=== PATIENT | male | born 1950 | race Hispanic/Latino ===

== ENCOUNTER 2018-04-01 05:35 | Day surgery (SDC) | payer OTHER ==
[~2018-04-01 05:35] MED LIST: ALFU10TA18 PO; APIX5TAB PO; ASPI-1197 PO; METO25TA6 PO; PRAV40TA3 PO; RIVA20TA PO; UBID1CAP56 PO
[2018-04-01] MEDS ORDERED: SODIUM CHLORIDE 0.9% 1000ML 1,000 ML IV ONE (05:37)
[2018-04-01] MEDS ORDERED: PROPOFOL 10 MG/ML 20ML VIAL IV ONE (07:02)
[2018-04-01] MEDS ORDERED: FENTANYL CITRATE PF 50 MCG/1 ML 2ML VIAL ONE (07:02)
[2018-04-01] MEDS ORDERED: LIDOCAINE HCL-MPF 2% 5ML VIAL ONE (07:02)
[2018-04-01] MEDS ORDERED: GLYCOPYRROLATE 0.2 MG/ML 5 ML VIAL ONE (07:02)
[2018-04-01 07:19] VITALS: BP 98/63
[2018-04-01 07:24] VITALS: BP 112/68
[2018-04-01 07:32] VITALS: BP 117/75
[2018-04-01 07:37] VITALS: BP_SYST 126; BP_DIAS 72; BP_DIAS 77
== END 2018-04-01 07:45 | disposition home or self-care (01) ==
LOC: DAH 05:35 → ENDO 05:35
PROVIDERS: ATTEND Internal Medicine Gastroenterology
DX: Z12.11 Encounter for screening for malignant neoplasm of colon (principal); D12.3 Benign neoplasm of transverse colon; Z86.010 Personal history of colon polyps; K64.0 First degree hemorrhoids; I48.2 Chronic atrial fibrillation; Z68.31 Body mass index [BMI] 31.0-31.9, adult; E78.00 Pure hypercholesterolemia, unspecified; Z79.899 Other long term (current) drug therapy; E66.9 Obesity, unspecified; I10 Essential (primary) hypertension; R00.1 Bradycardia, unspecified
CPT/HCPCS: 45385; 88305; 93005; A4606; J2704; J3010; J3490 ×2; J7030

== ENCOUNTER 2019-05-26 06:12 | Day surgery (SDC) | payer OTHER ==
[~2019-05-26] VITALS: Ht 172.7 cm; Wt 94.3 kg
[~2019-05-26 06:12] MED LIST changes: -ALFU10TA18 PO; +ALFU10TA9 PO; -APIX5TAB PO; -METO25TA6 PO
[2019-05-26] MEDS ORDERED: SODIUM CHLORIDE 0.9% 1000ML 1,000 ML IV ONE (06:27)
[2019-05-26 07:58] VITALS: BP 130/74
[2019-05-26] MEDS ORDERED: PROPOFOL 10 MG/ML 20ML VIAL IV ONE (08:24)
[2019-05-26 08:38] VITALS: BP 138/85
[2019-05-26 08:41] VITALS: BP 128/85
[2019-05-26 08:46] VITALS: BP 123/82
[2019-05-26 08:50] VITALS: BP 128/76
[2019-05-26 09:02] VITALS: BP 128/74
== END 2019-05-26 09:10 | disposition home or self-care (01) ==
LOC: DAH 06:12 → ENDO 06:12
PROVIDERS: ATTEND Internal Medicine Gastroenterology
DX: K21.9 Gastro-esophageal reflux disease without esophagitis (principal); K29.50 Unspecified chronic gastritis without bleeding; E78.00 Pure hypercholesterolemia, unspecified; I48.91 Unspecified atrial fibrillation; Z86.010 Personal history of colon polyps; Z79.899 Other long term (current) drug therapy
CPT/HCPCS: 43239; 88305; A4215; A4221; A4222; A4223; A4606; A4620; A4663; J2704; J7030

== ENCOUNTER → 2021-01-05 | Outpatient (CLI) | payer OTHER ==
[~2021-01-05] MED LIST changes: -ASPI-1197 PO; +LOVA10TA2 PO; +METO25 PO; +NITR0.4T50 SL; -PRAV40TA3 PO
== END | disposition home or self-care (01) ==
LOC: RAH 08:59
PROVIDERS: ATTEND Family Medicine
DX: K80.20 Calculus of gallbladder without cholecystitis without obstruction (principal); N28.1 Cyst of kidney, acquired
CPT/HCPCS: 76700

== ENCOUNTER 2021-03-09 19:08 | Emergency (ER) | payer OTHER ==
[~2021-03-09] VITALS: Ht 172.7 cm; Wt 88.5 kg
[2021-03-09 20:25] LABS: BASOPHILS % (AUTO) 0.4 % (0.0-5.0); EOSINOPHILS % (AUTO) 1.6 % (0.0-8.0); HEMATOCRIT 36.6 % (42-54); LYMPHOCYTES % (AUTO) 22.4 % (21.0-51.0); MEAN CORPUSCULAR HEMOGLOBIN 32.2 pg (27.0-33.0); MEAN CORPUSCULAR HGB CONC 34.7 g/dL (32.0-36.0); MEAN CORPUSCULAR VOLUME 92.7 fL (79-99); NEUTROPHILS % (AUTO) 66.2 % (40.0-77.0); PLATELET COUNT (AUTO) 203 K/uL (130-400); RED BLOOD CELL COUNT(AUTO) 3.95 MIL/uL (4.50-6.20); RED CELL DISTRIBUTION WIDTH 13.3 % (11.0-15.5); WHITE BLOOD COUNT (AUTO) 9.5 K/uL (4.8-10.8)
[2021-03-09] MEDS ORDERED: BISACODYL 10 MG SUPP.RECT RC ONE (20:30)
[2021-03-09 20:32] VITALS: BP 157/86
[2021-03-09 20:34] LABS: POTASSIUM 4.2 mmol/L (3.5-5.1)
[2021-03-09 20:37] LABS: INR 1.12 (0.85-1.15); PROTHROMBIN TIME 12.1 SEC (9.6-11.6)
[2021-03-09 20:38] LABS: PARTIAL THROMBOPLASTIN TIME 35.7 SEC (26.3-35.5)
[2021-03-09 20:38] LABS: APPEARANCE,URINE Clear (CLEAR); BILIRUBIN,URINE Negative (NEGATIVE); COLOR,URINE Yellow (YELLOW); GLUCOSE, URINE (UA) Negative (NEGATIVE); KETONES,URINE Negative (NEGATIVE); LEUKOCYTE ESTERASE ,URINE Negative (NEGATIVE); NITRATE,URINE Negative (NEGATIVE); OCCULT BLOOD,URINE Negative (NEGATIVE); PH,URINE 5.5 (5.0-8.0); PROTEIN,URINE Negative (NEGATIVE)
[2021-03-09 20:39] LABS: ALBUMIN 3.4 g/dL (3.5-5.0); BILIRUBIN,TOTAL 0.4 mg/dL (0.2-1.0); TOTAL PROTEIN, SERUM 6.8 g/dL (6.0-8.3)
[2021-03-09] MEDS ORDERED: HYDR30CR79 RC (21:00)
[2021-03-09] MEDS ORDERED: DOCU-116 PO (21:00)
== END 2021-03-09 21:16 | disposition home or self-care (01) ==
LOC: EDH 19:08
DX: K59.00 Constipation, unspecified (principal); K60.2 Anal fissure, unspecified; I48.91 Unspecified atrial fibrillation; Z79.899 Other long term (current) drug therapy; Z90.49 Acquired absence of other specified parts of digestive tract
CPT/HCPCS: 36415; 80053; 81003; 82270; 85025; 85610; 85730

== ENCOUNTER → 2021-10-18 | Outpatient (CLI) | payer OTHER ==
[~2021-10-18] MED LIST changes: +DOCU-116 PO; +HYDR30CR79 RC
[2021-10-18 12:39] LABS: POTASSIUM 4.4 mmol/L (3.5-5.1)
[2021-10-18 13:19] LABS: MAGNESIUM 1.8 mg/dL (1.80-2.40); THYROID STIMULATING HORMONE 2.09 uIU/mL (0.36-3.74)
== END | disposition home or self-care (01) ==
LOC: LAB 11:17
PROVIDERS: ATTEND Internal Medicine Cardiovascular Disease
DX: I48.0 Paroxysmal atrial fibrillation (principal)
CPT/HCPCS: 36415; 80048; 83735; 84443

== ENCOUNTER → 2021-11-07 | Outpatient (CLI) | payer OTHER | END | disposition home or self-care (01) | LOC: SHCH 12:26 | PROVIDERS: ATTEND Internal Medicine Cardiovascular Disease | DX: I48.0 Paroxysmal atrial fibrillation (principal); I51.7 Cardiomegaly; I35.1 Nonrheumatic aortic (valve) insufficiency | CPT/HCPCS: 93306 ==

== ENCOUNTER → 2022-06-17 | Outpatient (CLI) | payer OTHER ==
[~2022-06-17] MED LIST changes: +AMIO200T68 PO; +DABI150C PO; +IOHEXOL 350 MG/ML 100ML INFUS..BTL IV ONE; +ROSU5TAB12 PO
== END | disposition home or self-care (01) ==
LOC: CANSCHCLI → RAH 07:55
PROVIDERS: ATTEND Internal Medicine Cardiovascular Disease
DX: Z01.810 Encounter for preprocedural cardiovascular examination (principal); I48.0 Paroxysmal atrial fibrillation; I25.10 Atherosclerotic heart disease of native coronary artery without angina pectoris; I51.7 Cardiomegaly; K44.9 Diaphragmatic hernia without obstruction or gangrene; M47.815 Spondylosis without myelopathy or radiculopathy, thoracolumbar region; Z90.49 Acquired absence of other specified parts of digestive tract
CPT/HCPCS: 71275; Q9967

== ENCOUNTER 2022-06-20 05:57 | Observation (INO) | payer OTHER ==
[2022-06-14 11:47] LABS: BASOPHILS % (AUTO) 0.6 % (0.0-5.0); EOSINOPHILS % (AUTO) 7.5 % (0.0-8.0); HEMATOCRIT 37.9 % (42-54); LYMPHOCYTES % (AUTO) 41.9 % (21.0-51.0); MEAN CORPUSCULAR HEMOGLOBIN 30.7 pg (27.0-33.0); MEAN CORPUSCULAR VOLUME 93.1 fL (79-99); MONOCYTES % (AUTO) 12.4 % (3.0-13.0); NEUTROPHILS % (AUTO) 37.2 % (40.0-77.0); PLATELET COUNT (AUTO) 217 K/uL (130-400); RED BLOOD CELL COUNT(AUTO) 4.07 MIL/uL (4.50-6.20); WHITE BLOOD COUNT (AUTO) 4.7 K/uL (4.8-10.8)
[2022-06-14 11:55] LABS: CREATININE 1.1 mg/dL (0.5-1.5); POTASSIUM 4.2 mmol/L (3.5-5.1)
[2022-06-14 11:59] LABS: INR 1.31 (0.85-1.15); PROTHROMBIN TIME 14.1 SEC (9.6-11.6)
[2022-06-14 12:00] LABS: PARTIAL THROMBOPLASTIN TIME 59.8 SEC (26.3-35.5)
[2022-06-19 10:43] VITALS: BP 136/77
[2022-06-20] VITALS (25 sets, daily range): BP systolic 118–184; BP diastolic 61–116
[~2022-06-20] VITALS: Ht 172.7 cm; Wt 89.9 kg
[~2022-06-20 05:57] MED LIST changes: -ALFU10TA9 PO; -DOCU-116 PO; -HYDR30CR79 RC; -IOHEXOL 350 MG/ML 100ML INFUS..BTL IV ONE; -LOVA10TA2 PO; -METO25 PO; -RIVA20TA PO; -UBID1CAP56 PO
[2022-06-20] MEDS ORDERED: 0.9%NACL 1000ML 1,000 ML IV ONE (06:28)
[2022-06-20] MEDS ORDERED: HEPARIN 10,000 UNIT/10ML (1,000 UNIT/ML) VIAL ONE ×3 (07:21→09:37)
[2022-06-20] MEDS ORDERED: LIDOCAINE HCL 400MG/20ML VIAL ONE (07:21)
[2022-06-20] MEDS ORDERED: ISOPROTERENOL HCL 0.2 MG/ML AMP/VIAL/BAG ONE (07:21)
[2022-06-20] MEDS ORDERED: MIDAZOLAM HCL 1 MG/ML 2ML VIAL ONE (07:34)
[2022-06-20] MEDS ORDERED: FENTANYL CITRATE PF 50 MCG/1 ML 2ML VIAL ONE (07:37)
[2022-06-20] MEDS ORDERED: SUCCINYLCHOLINE 200MG/10ML SYR ONE (07:37)
[2022-06-20] MEDS ORDERED: PROPOFOL 10 MG/ML 20ML VIAL IV ONE (07:37)
[2022-06-20] MEDS ORDERED: ROCURONIUM 10MG/1ML SYR 10 MG/ML ML ONE (07:37)
[2022-06-20] MEDS ORDERED: NEOSTIGMINE 5MG/5ML SYR IV ONE (07:37)
[2022-06-20] MEDS ORDERED: GLYCOPYRROLATE 1 MG/5 ML SYRINGE ONE (07:37)
[2022-06-20] MEDS ORDERED: PHENYLEPHRINE HCL 10 MG/ML 1ML VIAL IV ONE (07:38)
[2022-06-20] MEDS ORDERED: EPHEDRINE SULFATE 50 MG/ML AMPULE ONE (07:38)
[2022-06-20] MEDS ORDERED: ROCURONIUM BROMIDE 10MG/1ML 5ML VL ONE (10:51)
[2022-06-20] MEDS ORDERED: PROTAMINE SULFATE 10 MG/ML 25ML VIAL IV ONE (12:21)
[2022-06-20] MEDS ORDERED: ACETAMINOPHEN WITH CODEINE 1 TAB TAB PO PRN (13:30)
[2022-06-20] MEDS ORDERED: NITROGLYCERIN 0.4 MG SL TAB SL SCH (13:30)
[2022-06-20] MEDS ORDERED: HYDRALAZINE 20MG/ML VIAL ONE (13:56)
[2022-06-20] MEDS ORDERED: PANTOPRAZOLE 40 MG TAB DR PO SCH (14:00)
[2022-06-20] MEDS: SUCRALFATE 1 GM TABLET PO SCH ×2 (15:33→21:10)
[2022-06-20] MEDS: ACETAMINOPHEN 325 MG TAB PO PRN (16:25)
[2022-06-20] MEDS ORDERED: ONDANSETRON 4MG INJ IVP PRN (16:35)
[2022-06-20] MEDS ORDERED: ONDANSETRON 4MG INJ ONE (16:45)
[2022-06-20] MEDS: DABIGATRAN 150MG CAPSULE PO SCH (21:11)
[2022-06-21 00:21] VITALS: BP 127/71
[2022-06-21] MEDS: SUCRALFATE 1 GM TABLET PO SCH ×2 (02:28→08:33)
[2022-06-21] MEDS: ACETAMINOPHEN 325 MG TAB PO PRN (02:31)
[2022-06-21 03:21] VITALS: BP 132/74
[2022-06-21 08:00] VITALS: BP 137/78
[2022-06-21] MEDS ORDERED: SUCR1ORA15 PO (08:30)
[2022-06-21] MEDS ORDERED: PANT40TA PO (08:30)
[2022-06-21] MEDS ORDERED: AMIODARONE 200 MG TABLET PO SCH (09:00)
[2022-06-21] MEDS ORDERED: PANTOPRAZOLE 40 MG TAB DR PO SCH (09:00)
[2022-06-21] MEDS: DABIGATRAN 150MG CAPSULE PO SCH (09:02)
[2022-06-21 11:30] VITALS: BP 145/78
== END 2022-06-21 12:33 | disposition home or self-care (01) ==
LOC: DAH 05:57 → DAHIP 05:58 → 2DH 15:26
PROVIDERS: ADMIT Internal Medicine Cardiovascular Disease; ATTEND Internal Medicine Cardiovascular Disease
DX: I48.0 Paroxysmal atrial fibrillation (principal); Z20.822 Contact with and (suspected) exposure to COVID-19; I10 Essential (primary) hypertension; E78.00 Pure hypercholesterolemia, unspecified; K59.00 Constipation, unspecified; M19.90 Unspecified osteoarthritis, unspecified site; R51.9 Headache, unspecified; R35.0 Frequency of micturition; Z85.46 Personal history of malignant neoplasm of prostate; Z79.899 Other long term (current) drug therapy; Z98.890 Other specified postprocedural states
CPT/HCPCS: 80048; 85025; 85610; 85730; 87426; 36415; 93005; 93622; 93623; 93656; A4344; C1894 ×3; C1893; A4215 ×2; C1731; A4649 ×2; C1732; C1730; G0378 ×22; J3010; J3490 ×5; J0330; J2710; J7030; J2720; J0360; J1644 ×4; J2250; J2704; J2405; J2370; A4223; A4222; A4221; A4663

== ENCOUNTER → 2023-10-06 | Outpatient (CLI) | payer OTHER ==
[~2023-10-06] MED LIST changes: -AMIO200T68 PO; +PANT40TA PO; +SUCR1ORA15 PO
== END | disposition home or self-care (01) ==
LOC: RAH 13:14
PROVIDERS: ATTEND Internal Medicine
DX: I70.201 Unspecified atherosclerosis of native arteries of extremities, right leg (principal); G62.9 Polyneuropathy, unspecified
CPT/HCPCS: 93925

== ENCOUNTER → 2023-11-22 | Outpatient (CLI) | payer OTHER ==
[~2023-11-22] MED LIST changes: -ROSU5TAB12 PO; +ROSU5TAB43 PO
== END | disposition home or self-care (01) ==
LOC: SHCH 12:43
PROVIDERS: ATTEND Internal Medicine Cardiovascular Disease
DX: I87.2 Venous insufficiency (chronic) (peripheral) (principal); I87.1 Compression of vein
CPT/HCPCS: 93970

== ENCOUNTER 2024-04-06 05:58 | Day surgery (SDC) | payer OTHER ==
[2024-04-02 08:45] VITALS: BP 159/79; PULSE 66; RESP 18; TEMP 97.4
[2024-04-02 08:56] LABS: BASOPHILS # (AUTO) 0.03 K/uL (0.00-0.20); BASOPHILS % (AUTO) 0.6 % (0.0-5.0); EOSINOPHILS # (AUTO) 0.16 K/uL (0.00-0.70); EOSINOPHILS % (AUTO) 3.3 % (0.0-8.0); HEMATOCRIT 36.2 % (42-54); IMMATURE GRANULOCYTE ABSOLUTE 0.05 K/uL (0-1); LYMPHOCYTES # (AUTO) 1.3 K/uL (1.0-4.8); LYMPHOCYTES % (AUTO) 26.4 % (21.0-51.0); MEAN CORPUSCULAR HEMOGLOBIN 32.9 pg (27.0-33.0); MEAN CORPUSCULAR HGB CONC 33.4 g/dL (32.0-36.0); MEAN CORPUSCULAR VOLUME 98.4 fL (79-99); MONOCYTES # (AUTO) 0.7 K/uL (0.1-1.0); MONOCYTES % (AUTO) 14.9 % (3.0-13.0); NEUTROPHILS # (AUTO) 2.6 K/uL (1.8-7.7); NEUTROPHILS % (AUTO) 53.8 % (40.0-77.0); PLATELET COUNT (AUTO) 236 K/uL (130-400); RED BLOOD CELL COUNT(AUTO) 3.68 MIL/uL (4.50-6.20); RED CELL DISTRIBUTION WIDTH 13.8 % (11.0-15.5); WHITE BLOOD COUNT (AUTO) 4.8 K/uL (4.8-10.8)
[2024-04-02 09:05] LABS: CREATININE 1.1 mg/dL (0.5-1.3); POTASSIUM 4.8 mmol/L (3.5-5.1)
[2024-04-02 09:07] LABS: INR 1.08 (0.85-1.15); PROTHROMBIN TIME 11.6 SEC (9.6-11.6)
[2024-04-02 09:08] LABS: PARTIAL THROMBOPLASTIN TIME 30.5 SEC (26.3-35.5)
[~2024-04-06] VITALS: Ht 172.7 cm; Wt 89.1 kg
[2024-04-06] VITALS (17 sets, daily range): BP systolic 139–167; BP diastolic 71–92; PULSE 58–78; RESP 12–17; TEMP 97.4–97.9
[~2024-04-06 05:58] MED LIST changes: +AMIO200T68 PO; +APIX5TAB PO; -DABI150C PO; +EZET10TA48 PO; +HYDR-3421 PO; +LOSA100T59 PO; -PANT40TA PO; -ROSU5TAB43 PO; -SUCR1ORA15 PO
[2024-04-06] MEDS ORDERED: LIDOCAINE HCL 400MG/20ML VIAL ONE ×2 (07:14→07:59)
[2024-04-06] MEDS ORDERED: ISOPROTERENOL HCL 0.2 MG/ML AMP/VIAL/BAG ONE (07:14)
[2024-04-06] MEDS ORDERED: HEParin 10,000 UNIT/10ML (1,000 UNIT/ML) VIAL ONE ×2 (07:15→08:39)
[2024-04-06] MEDS ORDERED: HEParin-NS 1,000 UNIT/500 ML 1,000 ML IV ONE (07:15)
[2024-04-06] MEDS ORDERED: IOHEXOL 350 MG/ML 100ML INFUS..BTL IV ONE (07:17)
[2024-04-06] MEDS ORDERED: proPOFol 1000 MG/100 ML 100 ML IV ONE (07:21)
[2024-04-06] MEDS ORDERED: LIDOCAINE HCL-MPF 1% 5ML AMP IJ ONE (07:21)
[2024-04-06] MEDS ORDERED: dexaMETHasone SOD PHOSPHATE 10MG/ML 1ML VIAL ONE (07:21)
[2024-04-06] MEDS ORDERED: ondanSETRON 4MG INJ ONE (07:21)
[2024-04-06] MEDS ORDERED: GLYCOPYRROLATE 0.2 MG/ML 5 ML VIAL ONE (07:22)
[2024-04-06] MEDS ORDERED: FENTanyl CITRate PF 50 MCG/1 ML 2ML VIAL ONE (07:22)
[2024-04-06] MEDS ORDERED: NEOSTIGMINE METHYLSULFATE 1MG/ML IV ONE (07:22)
[2024-04-06] MEDS ORDERED: rocuRONium bROMide 10MG/1ML 5ML VL ONE (07:22)
[2024-04-06] MEDS ORDERED: phenylEPHRINE HCL 10 MG/ML 1ML VIAL IV ONE (07:24)
[2024-04-06] MEDS ORDERED: ePHEDrine SULFate 50 MG/ML AMPULE ONE (07:24)
[2024-04-06] MEDS ORDERED: 0.9%NACL 10ML VIAL ONE (07:24)
[2024-04-06] MEDS: 0.9%NACL 1000ML 1,000 ML IV ONE (07:56)
[2024-04-06] MEDS ORDERED: HEParin-NS 1,000 UNIT/500 ML 500 ML IV ONE (08:05)
[2024-04-06] MEDS ORDERED: PROTamine SULFate 10 MG/ML 25ML VIAL IV ONE (10:38)
== END 2024-04-06 14:00 | disposition home or self-care (01) ==
LOC: DAH 05:58
PROVIDERS: ATTEND Internal Medicine Cardiovascular Disease
DX: I48.0 Paroxysmal atrial fibrillation (principal); I10 Essential (primary) hypertension; E78.5 Hyperlipidemia, unspecified; K21.9 Gastro-esophageal reflux disease without esophagitis; I25.10 Atherosclerotic heart disease of native coronary artery without angina pectoris; Z85.46 Personal history of malignant neoplasm of prostate; Z98.890 Other specified postprocedural states; Z79.01 Long term (current) use of anticoagulants; Z79.899 Other long term (current) drug therapy
CPT/HCPCS: 80048; 85025; 85610; 85730; 36415; 93005; 93656; 93657; 85347 ×6; 82948 ×2; C1894 ×2; C1732 ×3; C1730; A4649 ×2; C1760; C1766; J3010; J3490 ×6; J1100; J7030; J1644 ×4; J2704; J2405; J2710; J2371; Q9967; A4215; A4222; A4221; A4663; A4216; A4606; J2720; A4223 ×3

== ENCOUNTER 2024-05-21 06:42 | Emergency (ER) | payer OTHER ==
[~2024-05-21] VITALS: Ht 172.7 cm; Wt 89.8 kg
[~2024-05-21 06:42] MED LIST changes: -AMIO200T68 PO
[2024-05-21 07:00] VITALS: TEMP 98
--- NOTE | 2024-05-21 07:10 | NUR ---
REPORT RECEIVED FROM ERLINDA OJEDA
--- NOTE | 2024-05-21 07:12 | ERN ---
General Chief Complaint: Lower Extremity Pain/Injury Stated Complaint: RIGHT LEG PAIN Time Seen by MD: 07:08 History of Present Illness Initial Comments [id number] male who presents for atraumatic right leg pain. Patient reports one week of pain it is in the right lateral thigh and medial thigh and it goes behind of the right knee and into the calf. He describes it as a burning and painful sensation. He has been taking Tylenol with some relief but then the pain returns. It is positional. He reports that he initially he did have some bilateral leg swelling but this is improved. He denies any trauma or injury. He denies any lower back pain. He denies any paresthesias anesthesias or skin texture changes. Medical history: Atrial fibrillation, neuropathy PCP: [facility] [employer] Executive: Madeline Mcmanus Allergies: Coded Allergies: No Known Drug Allergies (Verified Allergy, Unknown, 10/07/14) Home Meds Reported Medications Losartan Potassium (Losartan Potassium) 100 Mg Tablet, 100 MG PO HS, TAB 04/02/24 Apixaban (Eliquis) 5 Mg Tablet, 5 MG PO BID, TAB 04/02/24 Ezetimibe (Ezetimibe) 10 Mg Tablet, 10 MG PO DAILY, TAB 04/02/24 Hydroxyzine HCl (Hydroxyzine HCl) 25 Mg Tablet, 25 MG PO DAILY PRN for ANXIETY, TAB 04/02/24 Nitroglycerin (Nitroglycerin) 0.4 Mg Tab.subl, 0.4 MG SL AD PRN for CHEST PAIN, TAB.SL 07/07/19 Past Medical History Past Medical History: A-Fib, Diabetes-Type II, High Cholesterol, Heart Disease, Hypertension Past Surgical History: Cholecystectomy Surgical History Other: CARDIAC STENT ROS Dictation CONSTITUTIONAL: No chills, no fever, no weakness, no diaphoresis, no malaise. HEAD/FACE: No signs of trauma. EENT: No eye pain, no blurred vision, no tearing, no double vision, no ear pain, no ear discharge, no nose pain, no nasal congestion, no throat pain, no throat swelling, no mouth pain. RESPIRATORY: No cough, no orthopnea, no SOB, no stridor, no wheezing. CARDIOVASCULAR: No chest pain, no edema, no palpitations, no syncope. GASTROINTESTINAL/ABDOMINAL: No abdominal pain, no constipation, no diarrhea, no nausea, no vomiting. GENITOURINARY: No abnormal discharge, no dysuria, no frequent urination, no hematuria. No complaints of pain in the genitals. MUSCULOSKELETAL: Right leg pain INTEGUMENTARY: No change in color, no change in hair/nails, no dryness, no lesion, no lumps, no rash. NEUROLOGICAL/PSYCH: No anxiety, not depressed, no emotional problem, no headache, no numbness, no pre-existing deficit, no history of seizures, no tremors, no weakness. HEMATOLOGIC/LYMPHATIC: Not anemic, no history of blood clots, no apparent bleeding, no bruising, glands not swollen. All Systems Negative, Except as Noted. Physical Exam Physical Exam Dictation VITAL SIGNS: Reviewed. GENERAL APPEARANCE: Alert, oriented x3, no acute distress. HEAD AND FACE: Non-traumatic. EYES: PERRL, pink conjunctivas, eyelid no trauma, anterior chamber clear. EARS: Pinnas intact and no signs of trauma or erythema. Ear canals clear and no discharge. TMs no erythema. NOSE: No discharge, no bleeding. OROPHARYNX: Mouth normal, teeth no caries, tongue pink. Pharynx clear, no erythema. Tonsils no exudates, no abscesses noted. Mucous membrane moist. NECK: Supple, non-tender, no thyromegaly, no masses, no JVD, no bruits. BREAST: Deferred. CHEST: No tenderness, no crepitus, no paradoxical movement, no retractions. LUNGS: Clear, well-ventilated, symmetric, no rales, no wheezing, no rhonchi, no stridor, good breath sounds bilaterally. HEART: Regular rate, regular rhythm, no murmur, no gallops. VASCULAR: No peripheral edema. ABDOMEN: Soft, positive bowel sounds, nondistended, no guarding, nontender, no rebound, no masses no hepatomegaly, no splenomegaly, no Villalobos's sign, no hernias. RECTAL: Deferred. GENITAL: Deferred. NEUROLOGICAL: Normal speech, gross motor function intact, gross sensory function intact. MUSCULOSKELETAL: Neck nontender, full range of motion, back nontender, full range of motion. EXTREMITIES: Nontender, full range of motion. SKIN: Color pink, dry, no turgor, no rash, no lacerations, no abrasions, no contusions. LYMPHATICS: Deferred. Results Laboratory and Microbiology Lab and Micro Result Laboratory Tests Test 12/13/24 08:00 White Blood Count 4.3 K/uL (4.8-10.8) L Red Blood Count 3.52 MIL/uL (4.50-6.20) L Hemoglobin 11.2 g/dL (14.0-18.0) L Hematocrit 33.6 % (42-54) L Mean Corpuscular Volume 95.5 fL (79-99) Mean Corpuscular Hemoglobin 31.8 pg (27.0-33.0) Mean Corpuscular Hemoglobin Concent 33.3 g/dL (32.0-36.0) Red Cell Distribution Width 13.2 % (11.0-15.5) Platelet Count 260 K/uL (130-400) Mean Platelet Volume 10.3 fL (7.5-10.5) Immature Granulocyte % (Auto) 0.7 % (0-1) Neutrophils (%) (Auto) 57.6 % (40.0-77.0) Lymphocytes (%) (Auto) 23.5 % (21.0-51.0) Monocytes (%) (Auto) 14.7 % (3.0-13.0) H Eosinophils (%) (Auto) 2.8 % (0.0-8.0) Basophils (%) (Auto) 0.7 % (0.0-5.0) Neutrophils # (Auto) 2.5 K/uL (1.8-7.7) Lymphocytes # (Auto) 1.0 K/uL (1.0-4.8) Monocytes # (Auto) 0.6 K/uL (0.1-1.0) Eosinophils # (Auto) 0.12 K/uL (0.00-0.70) Basophils # (Auto) 0.03 K/uL (0.00-0.20) Absolute Immature Granulocyte (auto 0.03 K/uL (0-1) Nucleated Red Blood Cells 0.0 % (0.0-0.19) Sodium Level 138 mmol/L (136-145) Potassium Level 4.0 mmol/L (3.5-5.1) Chloride Level 104 mmol/L (101-111) Carbon Dioxide Level 28 mmol/L (21-32) Blood Urea Nitrogen 16 mg/dL (7-18) Creatinine 1.0 mg/dL (0.5-1.3) Glomerular Filtration Rate Calc 78 mL/min (>90) Random Glucose 89 mg/dL (70-105) Total Calcium 7.9 mg/dL (8.5-10.1) L Total Creatine Kinase 48 U/L (21-232) # C-Reactive Protein, Quantitative 2.40 mg/L (0.5-3.0) MDM CC: Atraumatic right lower leg pain Historian: Patient Comorbidities: Atrial fibrillation, history of blood clots, neuropathy Limitations by social determinants of Health : None Differential diagnosis: DVT, musculoskeletal type pain, infection, other. Vital signs are stable Clinical exam is unremarkable Labs show no leukocytosis no anemia. Metabolic panel is normal. CRP and CK are normal. DVT study negative. Knee x-ray per my independent interpretation shows no acute abnormalities or osseous abnormalities. Pelvic XR per my independent interpretation shows No osseous abnormalities femoral x-ray per my independent interpretation shows no acute abnormalities. No signs of DVT, osseous abnormalities. Labs are all normal. Possibly musculoskeletal in nature. We will DC with a short course of NSAIDs and recommend PCP follow up. ED Course Orders Procedure Category Date Status Time Cbc With Differential LAB 05/21/24 In Process 07:08 Basic Metabolic Panel LAB 05/21/24 Complete 07:08 Crp Quantitative LAB 05/21/24 Complete 07:08 Erythrocyte LAB 05/21/24 In Process Sedimentation Rate 07:08 Creatine Kinase, Total LAB 05/21/24 Complete 07:08 Hip Unilat 2-3vw Right RAD 05/21/24 Taken 07:08 Femur 2vw Right RAD 05/21/24 Taken 07:08 Knee 3vws Rt RAD 05/21/24 Taken 07:08 Us Venous Doppler US 05/21/24 Resulted Unilateral 07:08 Ketorolac PHA 05/21/24 Complete Tromethamine 15mg/Ml 07:30 Current Medications Medications (Trade) Dose Ordered Sig/Vadim Route PRN Reason Start Time Stop Time Status Last Admin Dose Admin Ketorolac Tromethamine (toRADol) 15 mg ONCE ONCE IV 05/21/24 07:30 05/21/24 07:31 DC 05/21/24 09:07 Vital Signs Date Time Temp Pulse Resp B/P (MAP) Pulse Ox O2 Delivery O2 Flow Rate FiO2 05/21/24 07:00 98.1 73 18 143/80 100 Room Air* 0 21 05/21/24 06:44 97.9 74 16 141/76 98 Room Air 0 DX & DISP Disposition: Discharge Departure Impression: Primary Impression: Right leg pain Condition: Stable Assign Patient to: There are no dangerous findings on your workup here today. Your symptoms are likely musculoskeletal in nature. The x-rays of your hip, femur, and knee are unremarkable. Your ultrasound shows no signs of blood clots. Your blood work (CBC, BMP, CK, sed rate, CRP) shows no signs of muscle breakdown or inflammation or infection. I have prescribed meloxicam, which is an anti-inflammatory pain medication. I recommend you take this daily for five days. You can also take 1000 mg of daha-rju-pxocilx Tylenol up to 4 times a day as needed. You can use ice or heating pads as needed. I recommend that you follow up with your primary doctor early next week if you continue with symptoms. Please return to the emergency department if you have any concerns. Scripts Meloxicam (Meloxicam) 15 Mg Tablet 15 MG PO DAILY PRN for PAIN for 5 Days, #5 TAB Prov: MICHAEL KOENIG DO 05/21/24 Referrals: PAT HOFF MD (PCP) MICHAEL KOENIG DO May 21, 2024 07:12
--- NOTE | 2024-05-21 07:26 | NUR ---
EDI ERNST JUST COMPLETED HER EXAM
--- NOTE | 2024-05-21 08:42 | HMCIMG ---
US VENOUS DOPPLER UNILATERAL REASON: right thigh pain, atraumatic, hx of blood clots COMPARISON: None Technique: Right venous doppler ultrasound was performed with spectral analysis and color flow imaging technique. FINDINGS: There is a normal appearance of the common femoral, deep femoral, the profunda femoris and popliteal veins. Proximal calf veins appear normal as well. There is normal response to compression and augmentation. There is no evidence of deep venous thrombosis. IMPRESSION: Normal right lower extremity venous Doppler ultrasound.
[2024-05-21 08:50] LABS: BASOPHILS # (AUTO) 0.03 K/uL (0.00-0.20); BASOPHILS % (AUTO) 0.7 % (0.0-5.0); EOSINOPHILS # (AUTO) 0.12 K/uL (0.00-0.70); EOSINOPHILS % (AUTO) 2.8 % (0.0-8.0); HEMATOCRIT 33.6 % (42-54); IMMATURE GRANULOCYTE ABSOLUTE 0.03 K/uL (0-1); LYMPHOCYTES % (AUTO) 23.5 % (21.0-51.0); MEAN CORPUSCULAR HEMOGLOBIN 31.8 pg (27.0-33.0); MEAN CORPUSCULAR HGB CONC 33.3 g/dL (32.0-36.0); MEAN CORPUSCULAR VOLUME 95.5 fL (79-99); MONOCYTES # (AUTO) 0.6 K/uL (0.1-1.0); MONOCYTES % (AUTO) 14.7 % (3.0-13.0); NEUTROPHILS # (AUTO) 2.5 K/uL (1.8-7.7); NEUTROPHILS % (AUTO) 57.6 % (40.0-77.0); PLATELET COUNT (AUTO) 260 K/uL (130-400); RED BLOOD CELL COUNT(AUTO) 3.52 MIL/uL (4.50-6.20); RED CELL DISTRIBUTION WIDTH 13.2 % (11.0-15.5); WHITE BLOOD COUNT (AUTO) 4.3 K/uL (4.8-10.8)
[2024-05-21] MEDS: ketOROlac 15MG/ML VIAL (15MG/ML) IV ONE (09:07)
[2024-05-21] MEDS ORDERED: MELO-108 PO (09:49)
--- NOTE | 2024-05-21 09:58 | HMCIMG ---
FEMUR 2VW RIGHT REASON: pain to lateral thigh TECHNIQUE: 4 views were obtained. FINDINGS: There is no evidence of fracture or dislocation. There is no joint effusion. The soft tissues appear unremarkable. There is no evidence of a radiopaque foreign body. IMPRESSION: No acute findings.
--- NOTE | 2024-05-21 09:58 | HMCIMG ---
KNEE 3VWS RT REASON: pain to lateral thigh TECHNIQUE: 3 views were obtained. FINDINGS: There is no evidence of fracture or dislocation. There is no joint effusion. The soft tissues appear unremarkable. There is no evidence of a radiopaque foreign body. IMPRESSION: No acute findings.
--- NOTE | 2024-05-21 09:59 | HMCIMG ---
Exam: AP pelvis and right hip 2 views Reason: Pain. FINDINGS: There are normal-appearing bones of the pelvis. Hip joint spaces appear preserved. Proximal right femur appears unremarkable on the oblique view. IMPRESSION: 1. Normal views of the pelvis and right femur.
[2024-05-21 10:00] VITALS: BP 142/72; PULSE 63; RESP 17; O2SAT 98
[2024-05-21] MEDS: HYDROcodone/APAP 5/325 1 TAB TABLET PO ONE (10:16)
[2024-05-21 10:19] LABS: ERYTHROCYTE SEDIMENTATION RATE 9 MM/HR (0-20)
== END 2024-05-21 10:47 | disposition home or self-care (01) ==
LOC: EDH 06:42
DX: M79.604 Pain in right leg (principal); E11.9 Type 2 diabetes mellitus without complications; E78.00 Pure hypercholesterolemia, unspecified; I11.9 Hypertensive heart disease without heart failure; I48.91 Unspecified atrial fibrillation; Z79.01 Long term (current) use of anticoagulants; Z90.49 Acquired absence of other specified parts of digestive tract; Z95.5 Presence of coronary angioplasty implant and graft
CPT/HCPCS: 99285; 96374; 93971; 82550; 80048; 85025; 85651; 86140; 36415; 73502; 73552; 73562; J1885

== ENCOUNTER → 2025-04-06 | Outpatient (CLI) | payer OTHER ==
[~2025-04-06] MED LIST changes: -EZET10TA48 PO; +EZET10TA80 PO; +GADOTERATE MEGLUMINE 10 MMOL/20 ML VIAL IV ONE; +MELO-108 PO
--- NOTE | 2025-04-06 23:16 | HMCIMG ---
EXAM: MAGNETIC RESONANCE ANGIOGRAPHY OF THE HEAD WITHOUT INTRAVENOUS CONTRAST Technique: Three-dimensional [id number] magnetic resonance angiography of the [place] with multiplanar maximum-intensity projections; complementary source images reviewed. Clinical Information: Weakness. Comparison: None. Findings: Anterior circulation: Right internal carotid artery (intracranial segment) is patent without occlusion or hemodynamically significant stenosis. No aneurysm identified. Right middle cerebral artery is patent without significant stenosis or aneurysm. Right anterior cerebral artery is patent without significant stenosis or aneurysm. Left internal carotid artery (intracranial segment) is patent without occlusion or hemodynamically significant stenosis. No aneurysm identified. Left middle cerebral artery is patent without significant stenosis or aneurysm. Left anterior cerebral artery is patent without significant stenosis or aneurysm; the A1 segment is hypoplastic. Posterior circulation: Right vertebral artery is patent without significant stenosis or aneurysm. Left vertebral artery is patent without significant stenosis or aneurysm. Basilar artery is patent without significant stenosis or aneurysm. Right posterior cerebral artery is patent without significant stenosis or aneurysm. Left posterior cerebral artery is patent without significant stenosis or aneurysm. Impression: * No intracranial large-vessel occlusion or hemodynamically significant stenosis on noncontrast magnetic resonance angiography. * No intracranial aneurysm identified. 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 /[place]
--- NOTE | 2025-04-06 23:17 | HMCIMG ---
EXAM: MAGNETIC RESONANCE IMAGING OF THE BRAIN AND BRAINSTEM WITH AND WITHOUT INTRAVENOUS CONTRAST Technique: Multiplanar magnetic resonance imaging of the brain and brainstem was performed before and after intravenous contrast, including axial T1-weighted, T2-weighted, fluid-attenuated inversion recovery, diffusion-weighted imaging with apparent diffusion coefficient maps, susceptibility-sensitive sequences, and post-contrast T1-weighted images in axial, coronal, and sagittal planes. Contrast: Standard dose of intravenous contrast administered. Contrast Impression: Contrast timing and image quality are adequate for diagnostic assessment. Clinical Information: Weakness. Comparison: None. Findings: Cerebral parenchyma: Scattered periventricular and subcortical T2/FLAIR hyperintense foci compatible with chronic microangiopathic change; no acute diffusion restriction to suggest acute infarct. No intracranial hemorrhage, mass, or mass effect. Extra-axial spaces and meninges: No extra-axial fluid collection. Ventricular system and basal cisterns: Ventricles are normal in size for age; basal cisterns are patent. Posterior fossa/brainstem and cerebellum: No focal parenchymal abnormality identified in the brainstem or cerebellum. No cerebellopontine angle mass. Post-contrast: No abnormal parenchymal, leptomeningeal, or pachymeningeal enhancement. Vascular flow voids: Expected arterial and dural venous sinus flow voids are present. Orbits and paranasal sinuses: No intraorbital abnormality; paranasal sinuses are clear. Calvarium: No marrow signal abnormality. Impression: * No acute intracranial abnormality???specifically, no acute infarct, hemorrhage, mass effect, or abnormal enhancement. * Mild chronic microangiopathic white-matter changes. * Unremarkable brainstem and cerebellum on dedicated sequences. /[place]
== END | disposition home or self-care (01) ==
LOC: RAH 13:55
PROVIDERS: ATTEND Internal Medicine
DX: G93.89 Other specified disorders of brain (principal); R53.1 Weakness; I63.9 Cerebral infarction, unspecified; G81.94 Hemiplegia, unspecified affecting left nondominant side; R55 Syncope and collapse
CPT/HCPCS: 70553; 70544; A9575